=== PATIENT | female | born 1980 | race Caucasian/White ===

== ENCOUNTER 2019-12-21 07:19 | Emergency (ER) | payer OTHER ==
[~2019-12-21] VITALS: Ht 172.7 cm; Wt 167.4 kg
[2019-12-21 07:28] VITALS: Ht 172.7 cm; Wt 167.4 kg
[2019-12-21 09:52] VITALS: BP 155/77
== END 2019-12-21 09:52 | disposition home or self-care (01) ==
LOC: ED 07:19
DX: M54.31 Sciatica, right side (principal); N39.0 Urinary tract infection, site not specified; E66.01 Morbid (severe) obesity due to excess calories; I10 Essential (primary) hypertension; E11.9 Type 2 diabetes mellitus without complications; E78.00 Pure hypercholesterolemia, unspecified; Z68.43 Body mass index [BMI] 50.0-59.9, adult